=== PATIENT | female | born 1940 | race Caucasian/White ===

== ENCOUNTER → 2022-01-11 12:13 | Outpatient (CLI) | payer MEDICARE, SELFPAY ==
--- NOTE | 2022-01-11 | DI.ECHO.S_ITS ---
[facility] +---------+ : : [address] : : : : [phone] : : : : Phone: [phone]---------+ Echocardiogram Report + + :Name: JUAN MIGUEL RAI Study Date: 01/11/2022 Height: 65 in : :[facility] ReadingLocation: Weight: 130 lb : : Gender: Female BSA: 1.6 m2 : :: 1940 Age: 81 yrs BP: 153/77 mmHg: :Reason For Study: Syncope : :Ordering Physician: : :Tatianna Ponce Performed By: Christian Jones : :Referring: Tatianna Ponce : + + Interpretation Summary The ejection fraction is estimated to be 65-70%. Diastolic function could not be accurately assessed due to confounding valvular disease. The right ventricle is normal in size and function. The left atrium is severely dilated. There is moderate mitral regurgitation. There is moderate aortic regurgitation. Pulmonary artery pressures cannot be estimated because of the lack of a measurable TR jet velocity. Procedure: A two-dimensional transthoracic echocardiogram with color flow and Doppler was performed. The study quality was technically adequate. There is no prior echocardiogram noted for this patient. Left Ventricle: The left ventricle is normal in size and wall thickness. Left ventricular systolic function is normal. The ejection fraction is estimated to be 65-70%. There are no focal wall motion abnormalities. Diastolic function could not be accurately assessed due to confounding valvular disease. Right Ventricle: The right ventricle is normal in size and function. Atria: The left atrium is severely dilated. Right atrial size is normal. The interatrial septum grossly appears intact with no obvious evidence for an atrial septal defect. Mitral Valve: There is severe mitral annular calcification. The mitral valve chordae are thickened and/or calcified. There is moderate mitral regurgitation. Aortic Valve: There is discrete nodular thickening of the non- coronary cusp. There is no aortic valve stenosis. There is moderate aortic regurgitation. Tricuspid Valve: The tricuspid valve is normal in structure and function. There is trace tricuspid regurgitation. Pulmonary artery pressures cannot be estimated because of the lack of a measurable TR jet velocity. Pulmonic Valve: The pulmonic valve is normal in structure and function. There is trace pulmonic regurgitation. Great Vessels: The aortic root is normal size. The dimensions of the ascending aorta are normal. The IVC is of normal diameter and collapses greater than 50% with a sniff. This suggests a low right atrial pressure of 3 mm Hg. Pericardium/ Pleura There is no pericardial effusion. There is no pleural effusion. MMode/2D Measurements & Calculations LVIDd: 4.5 cm LVOT diam: 1.9 cm LVIDs: 2.2 cm Ao root diam: 2.8 cm FS: 51.1 % asc Aorta Diam: 2.9 cm IVSd: 0.90 cm LVPWd: 0.80 cm LV ba. diameter/BSA (cm/m^2): 2.7 LV sys. diameter/BSA (cm/m^2): 1.3 LA dimension: 3.5 cm RA long axis: 4.9 cm LA A2 area: 26.6 cm2 IVC diam: 2.0 cm LA A4 area: 27.2 cm2 LA length (vol): 6.2 cm LA vol: 99.1 ml LA vol index: 60.1 ml/m2 TAPSE_phl: 2.5 cm Doppler Measurements & Calculations Ao V2 max: 159.0 cm/sec LVOT Max Floyd: 160.0 cm/sec Ao V2 mean: 111.0 cm/sec LV V1 max P.2 mmHg Ao max P.0 mmHg LV V1 VTI: 34.4 cm Ao mean P.0 mmHg OH(I,D): 2.9 cm2 Ao V2 VTI: 33.7 cm OH(V,D): 2.9 cm2 sev ratio: 1.0 OH indexed to BSA (cm^2/m^2): 1.8 AI P1/2t: 442.4 msec AI dec slope: 308.5 cm/sec2 MV E max floyd: 163.0 cm/sec MV V2 mean: 112.0 cm/sec MV A max floyd: 148.0 cm/sec MV mean P.0 mmHg MV E/A: 1.1 MV V2 VTI: 48.7 cm Med Peak E' Floyd: 5.1 cm/sec E/E' med: 31.8 Lat Peak E' Floyd: 6.9 cm/sec E/E' lat: 23.7 E/e' average: 27.8 MV dec time: 0.32 sec MV P1/2t: 97.5 msec MVA(VTI): 2.0 cm2 MV P1/2t max floyd: 188.0 cm/sec SV(LVOT): 97.5 ml MVA(P1/2t): 2.3 cm2 AV P1/2t-pr_phl: 443.5 msec MV P1/2t-pr_phl: 91.0 msec AV VR_phl: 1.0 OH(VTI)/BSA_phl: 1.8 Reading Physician:12:33 PM
== END ==
PROVIDERS: PCP Family Medicine; Referring Provider Internal Medicine Cardiovascular Disease; Visit Provider Internal Medicine Cardiovascular Disease
DX: R55 Syncope and collapse (principal); I08.0 Rheumatic disorders of both mitral and aortic valves
CPT/HCPCS: 93306